=== PATIENT | male | born 1985 | race Caucasian/White ===

== ENCOUNTER 2019-08-31 04:56 | Emergency (ER) | payer OTHER, SELFPAY ==
[2019-08-31 05:00] VITALS: BP 150/84; PULSE 90; RESP 18; TEMP 36.7; O2SAT 100; BMI 26.6
--- NOTE | 2019-08-31 05:10 | ED.VIS.GEN ---
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 He flushes ice for 15 minutes. Currently he has minimal pain but just irritation. He has no visual difficulty. He has no ocular problems at baseline. It was a new agent with a pH of 14 making it highly basic. Current severity is mild. Past Medical History - Allergies and Home Meds Allergies/Adverse Reactions: Allergies No Known Allergies Allergy (Verified 08/31/19 05:05) Primary Care Physician: [facility] [GROUP OF PHYSICIANS] - Prior records reviewed: Yes Past Medical History: None Surgical History: noncontributory Lives: With Family Alcohol: None Drugs: None Review of Systems General: Denies: Chills, Fever, Sweats Eyes: Reports: - - See HPI. Denies: Visual changes - left, Visual changes - right, Visual changes - bilaterally, Blurred vision - left, Blurred vision - right, Diplopia ENT: Denies: Rhinorrhea, Sore throat Cardiovascular: Denies: Chest pain, Palpitations Respiratory: Denies: Dyspnea, Cough, Dyspnea on exertion Gastrointestinal: Denies: Abdominal pain, Nausea, Vomiting, Diarrhea, Melena, Hematochezia Genitourinary: Denies: Dysuria, Hematuria, Frequency Musculoskeletal: Denies: Back pain, Extremity Pain Skin: Denies: Rash, Wounds Neurological: Denies: Headache, Weakness, Numbness Physical Exam Vital Signs/Narrative: Vital Signs Temp Pulse Resp BP Pulse Ox 08/31/19 05:00 98.0 F 90 18 150/84 H 100 General: Well nourished, Well developed, No Acute Distress Head: Normocephalic, Atraumatic Eyes: Perrl, EOMI, - - Patient has diffuse mild conjunctivitis. ENT: Moist mucous membranes, No rhinorrhea Neck: Supple, Nontender Cardiovascular: Regular rate, Regular rhythm, No murmurs Respiratory: No distress, CTA bilaterally, Chest nontender Abdomen: Soft, Nontender, Nondistended, Normal bowel sounds Back: Nontender, Normal Inspection Extremities: Nontender, No edema Skin: Normal color, No rash Neurological: Alert, Oriented x3, Cranial nerves II-XII grossly intact, Normal Strength, Normal Sensation Psychological: Normal affect, Normal Mood Diagnostic/Tx/Re-eval - Medical Decision Making pH immediately checked and a 7.0 via litmus paper. Patient was flushed out with saline immediately after tetracaine drops were instilled via Lamont lens. Patient continues to feel well afterwards. He will follow-up with his own fashion marketer at his request. He does not want to see a referred fashion marketer. He will follow-up also with [facility]. Currently he is suffering from a chemical exposure conjunctivitis only. No serious damage to his globe noted. On reevaluation he has mild conjunctivitis. Pupils are normal. Cornea appears normal. No foreign body. Patient has bilateral visual acuities checked after being flushed. 20/25 bilateral, 20/30 right, 20/25 left. ED Disposition - Plan for ED Patient: Disposition: Home or Assisted Living Diagnosis: Chemical conjunctivitis of both eyes Instructions: EYE EXPOSURE, Chemical Referrals: [facility] [GROUP OF PHYSICIANS] - Additional Instructions: Also call your fashion marketer for reevaluation as an outpatient
[2019-08-31 06:52] VITALS: BP 146/80; PULSE 78; RESP 16; O2SAT 97
== END 2019-08-31 06:53 | disposition home or self-care (01) ==
PROVIDERS: Emergency Provider Emergency Medicine
DX: T65.891A Toxic effect of other specified substances, accidental (unintentional), initial encounter (principal); H10.213 Acute toxic conjunctivitis, bilateral; Y92.9 Unspecified place or not applicable
CPT/HCPCS: 99284; J7030